=== PATIENT | female | born 1985 | race African-American/Black ===

== ENCOUNTER 2022-10-08 16:59 | Emergency (ER) | payer OTHER ==
[~2022-10-08] VITALS: Ht 180.3 cm; Wt 100.7 kg
[2022-10-08] MEDS ORDERED: VENTOLIN HFA18 GM INH (18:49)
[2022-10-08] MEDS ORDERED: PREDNISONE20 MG PO (18:49)
[2022-10-08] MEDS ORDERED: AZITHROMYCIN250 MG PO (18:49)
== END 2022-10-08 19:06 | disposition home or self-care (01) ==
LOC: ER 17:13
DX: R05.9 Cough, unspecified (principal); J06.9 Acute upper respiratory infection, unspecified; Z20.822 Contact with and (suspected) exposure to COVID-19
CPT/HCPCS: 99282; U0002

== ENCOUNTER 2023-02-01 23:00 | Emergency (ER) | payer OTHER ==
[~2023-02-01] VITALS: Ht 180.3 cm; Wt 100.7 kg
[~2023-02-01 23:00] MED LIST: AZITHROMYCIN250 MG PO; PREDNISONE20 MG PO; VENTOLIN HFA18 GM INH
[2023-02-01 23:42] LABS: BASOPHILS # (AUTO) 0.1 (0.0-0.1); BASOPHILS % 0.8 % (0.0-1.0); EOSINOPHILS # (AUTO) 0.2 (0.0-0.4); EOSINOPHILS % 2.1 % (0.0-6.0); HEMATOCRIT 33.3 % (34.2-44.1); HEMOGLOBIN 10.5 g/dL (12.0-16.0); LYMPHOCYTES # (AUTO) 4.3 (1.0-3.2); LYMPHOCYTES % 40.9 % (18.0-39.1); MEAN CORPUSCULAR HEMOGLOBIN 26.3 pg (28-32); MEAN CORPUSCULAR HGB CONC 31.5 g/dL (31-35); MEAN CORPUSCULAR VOLUME 83.3 fL (81-99); MONOCYTES # (AUTO) 0.4 (0.2-0.8); MONOCYTES % 3.8 % (4.4-11.3); NEUTROPHILS # (AUTO) 5.5 (2.1-6.9); NEUTROPHILS % 52.2 % (38.7-80.0); PLATELET COUNT 268 x10e3/uL (140-360); RED CELL DISTRIBUTION WIDTH 14.7 % (11.7-14.4)
[2023-02-02 00:01] LABS: ALBUMIN 3.8 g/dL (3.5-5.0); ALBUMIN/GLOBULIN RATIO 1.1 (0.8-2.0); ANION GAP 13.5 mmol/L (8-16); CALCIUM 8.6 mg/dL (8.4-10.2); CREATININE, SERUM 0.83 mg/dL (0.57-1.11); POTASSIUM 3.5 mmol/L (3.5-5.1)
[2023-02-02 00:12] LABS: CLARITY,URINE SL CLOUDY (CLEAR); COLOR,URINE YELLOW (YELLOW); KETONES,URINE TRACE (NEGATIVE); LEUKOCYTE ESTERASE ,URINE SMALL (NEGATIVE); NITRITE,URINE NEGATIVE (NEGATIVE); PROTEIN,URINE DIPSTICK NEGATIVE (NEGATIVE); URINE UROBILINOGEN 0.2 mg/dL (0.2 - 1)
[2023-02-02 00:20] LABS: AMORPHOUS SEDIMENT,URINE MODERATE (FEW); BACTERIA,URINE FEW /HPF; EPITHELIAL CELLS,URINE FEW /LPF; MUCUS,URINE MANY (RARE); RBC,URINE 0-5 /HPF (0-5)
[2023-02-02] MEDS ORDERED: CEFDINIR300 MG PO (00:26)
[2023-02-02 00:35] VITALS: BP 158/79; PULSE 79; RESP 16; O2SAT 100
== END 2023-02-02 00:37 | disposition home or self-care (01) ==
LOC: ER 23:17
DX: R60.9 Edema, unspecified (principal); M25.475 Effusion, left foot; M25.474 Effusion, right foot; N39.0 Urinary tract infection, site not specified; I10 Essential (primary) hypertension; F17.290 Nicotine dependence, other tobacco product, uncomplicated
CPT/HCPCS: 36415; 80053; 81001; 81025; 83880; 85025; 99283